=== PATIENT | female | born 1995 | race Two or more races ===

== ENCOUNTER 2024-11-01 17:45 | Emergency (ER) | payer MEDICAID ==
[~2024-11-01] VITALS: Ht 172.7 cm; Wt 107.8 kg
--- NOTE | 2024-11-01 18:41 | ED.PDOC ---
Back pain HPI HPI Comments HPI: 29y F who presents to the ED for chief complaint of extremity pain. Patient had a MRI of the back in June of this year that shows foraminal stenosis. - pt PCP placed pt on pain medications for the past 1 month and pt is pending pain management appt which pt states is upcoming Past Medical history: foramen stenosis Past Surgical history: denies Medications: denies Allergies: denies Social History: endorses ETOH, denies tobacco use, endorses drug use(MJ) HPI: Poor Historian. Denies . 29-year-old female with a history of chronic low back pain pending to be seen by pain management. She is presenting today with the acute on chronic exacerbation of her low back pain. She points to her lumbosacral region worse on the right side radiating to the right upper buttock and into the right inguinal area. Pain is worse with movement of her right lower extremity. Denies cauda equina like symptoms. Denies any focal neurological deficits. Denies any recent fall or trauma or injury. Exacerbation of her symptoms started four days ago. REVIEW OF SYSTEMS: CONSTITUTIONAL: Denies acute: fever, diaphoresis, chills, generalized weakness. HEAD: Denies acute: headache, photophobia Eyes: Denies acute: Double vision, vision loss, eye pain, eye discharge. EARS: Denies acute: tinnitus, hearing loss, ear discharge, ear pain, THROAT: Denies acute: sore throat, swelling, difficulty swallowing , pain with swallowing, change in voice. NECK: Denies acute: neck pain, neck swelling, stiff neck. HEART: Denies acute : chest pain, palpitations, LUNGS: Denies acute: SOB, wheezing, cough, hemoptysis ABDOMEN: Denies acute: abdominal pain, Nausea, Vomiting, diarrhea, melena , hematemesis, hematochezia SKIN: Denies acute: rash, redness, lesions, itchiness. EXTREMITIES: Denies acute: calf pain, numbness, tingling, weakness, denies pain in extremity. Neuro: Denies acute: focal neurological deficit, motor or sensory focal neurological deficit, tremors, seizure like activity, confusion, dizziness, change in mental status, loss of bowel or bladder function, cauda equina like symptoms. : Denies acute: dysuria, hematuria, flank pain, increase in urinary frequency. PSYCH: Denies acute: hallucination, suicidal ideation, homicidal ideation. FEMALE: Denies acute: abnormal vaginal bleeding, foul odor, unusual discharge. PHYSICAL EXAM: General: ----mild----acute distress, awake and alert. Head: normocephalic, atraumatic. Neck: supple, trachea is midline, no swelling. Throat: Normal phonation. Eyes:, no erythema, no purulent discharge, no proptosis, no icterus. Heart: regular rate, regular rhythm, no significant murmur appreciated. Lungs: no apparent respiratory distress, Able to speak in full sentences. No wheezing, no rhonchi, no crackles. No stridors Clear to auscultation bilaterally. Abdomen: non tender to palpation, non distended, soft, no guarding, no rebound, + bowel sounds. Obese Palpation of the area of pain, lumbosacral region in a belt distribution worse on the right side. Pain is radiating to the right upper buttock area. No cauda equina like symptoms. Denies saddle anesthesia or any focal neurological weakness or deficit. Neuro: Awake, Alert, oriented to name, self, situation, follows commands GCS=15. Speech is normal. Skin: no petechia, no purpura, no cyanosis, non-pale, not jaundice. Lower extremities: --no - Pitting edema no deformity, no focal swelling, no calf TTP. Makes eye contact. moves all four extremities. Face: no apparent facial droop. No CVA tenderness to percussion bilaterally. Ambulating in the ED independently. Pedal pulses are palpable. ED COURSE: Chief Complaint: Lower Extremity Time Seen by MD: 19:19 Primary Care Provider: JUANIS Delgado Notes: Medications, Allergies Allergies: Coded Allergies: NO KNOWN ALLERGIES (Unverified , 11/01/24) Information Source: Patient Mode of Arrival: Ambulatory Was a procedure done? Was a procedure done?: No Back Pain Differential Dx Differential Diagnosis: Other (DDX included but not limited to Cauda Equina syndrome, lumbar radiculopathy, arthritis, disk herniation, sciatica, muscle strain, epidural abscess, transverse myelitis. Cord compression, spinal foraminal stenosis, spinal fractures, spondylosis, central canal stenosis, trauma, muscle sprain/strain, aneurysm/dissection, kidney stones, shingles, arthritis, [place], neoplasm.) X-Ray, Labs, Meds, VS Vital Signs Date Time Temp Pulse Resp B/P (MAP) Pulse Ox O2 Delivery O2 Flow Rate FiO2 11/01/24 21:08 98.0 58 20 114/65 (81) 97 98.0 11/01/24 18:59 62 18 103/63 (76) 100 11/01/24 18:54 Room Air* 0 21 11/01/24 18:00 98.1 71 16 112/82 (92) 99 98.1 Lab Test 11/01/24 21:30 Range/Units Urine Color Light-yellow Yellow Urine Clarity Clear Clear Urine pH 6.0 5.0-9.0 Urine Specific [place] 1.017 1.001-1.035 Urine Protein Negative Negative Urine Ketones Negative Negative Urine Blood Negative Negative /uL Urine Nitrite Negative Negative Urine Bilirubin Negative Negative Urine Urobilinogen Normal Negative mg/dL Urine Leukocyte Esterase Negative Negative /uL Urine RBC None seen 0 - 4 /hpf Urine Microscopic WBC < 1 0-5 /HPF Urine Squamous Epithelial Cells Few <5 /hpf Urine Bacteria None seen None Seen /hpf Urine Glucose Normal Normal mg/dL Time of 1ST Reevaluation: 21:19 (As of now, I still do not have urinalysis on this patient.) Reevaluation 1ST: Improved Patient Education/Counseling: Diagnosis, Treatment Family Education/Counseling: No Family Present Comments Patient presented with the above HPI.---acute and chronic low back pain---workup was initiated. patient was found with the above mentioned diagnosis. the following medications were ordered: please refer to order lists of meds and tests obtained by myself Dr. Rodgers. Patient ED course and VS have been stabilized. Patient has been reassessed in the ED and remained in a stable condition. Pertinent incidental findings were discussed with the patient and/or family. Patient/family voices understanding and is agreeable with plan. Patient has been observed in the ED adequate length of time to insure improvement/stability. Escalation of care considered: Consideration of escalation to observation or admission No cauda equina like symptoms. No focal neurological deficits. Patient is supposed to follow up with pain management and just had an MRI recently. Patient was DISCHARGED home in a stable condition. All the reports of any imaging studies that were ordered by myself were reviewed by myself. Departure 1 Departure Time of Disposition: 21:12 Impression: Primary Impression: Low back pain Disposition: HOME / SELF CARE / HOMELESS Condition: Stable Additional Instructions: Additional instructions: You MUST follow-up with your primary care/family doctor in 1 to 2 days. If you are unable to see your primary care/family doctor, please return to our emergency room for re-assessment and re-evaluation in 1 to 2 days. Return to the emergency room here in our facility or to the nearest ER [facility] if your symptoms change or worsen. CONSULTATIONS: you MUST Follow-up for consultation as soon as possible with: -orthopedic doctor and pain management in 1-2 days. Please call for appointment. You MUST call the consultants office yourself to make an appointment. You may need to arrange that through your insurance and/or your primary/family doctor. If you are unable to see the senior wind energy consultant in 1 to 2 days, you must return to our emergency room (or any other ER of your choice) for re-assessment and re- evaluation. Adequate fluid hydration. No heavy lifting. Rest. Discharged With: Self Critical Care Note Critical Care Time?: No I personally scribed for YUNIOR RODGERS DO ([email or web address]) on 11/01/24 at 18:41. Electronically submitted by Sandor Dixon ([email or web address]). I personally scribed for YUNIOR RODGERS DO ([email or web address]) on 11/01/24 at 19:19. Electronically submitted by Sandor SANCHEZ). YUNIOR RODGERS DO Nov 01, 2024 18:41
[2024-11-01] MEDS: HYDROcodone-ACET 5/325MG TAB PO ONE (19:11)
[2024-11-01] MEDS: KETOROLAC TROMETH 30 MG/ML 1ML VIAL IV ONE (19:11)
[2024-11-01] MEDS: DexAMETHasone SOD PHOS 10MG/1ML VIAL INJ IV ONE (19:12)
[2024-11-01 21:08] VITALS: BP 114/65; PULSE 58; RESP 20; TEMP 98; O2SAT 97
[2024-11-01 21:38] LABS: Urine Bacteria None Seen /hpf (None Seen)
[2024-11-01 21:43] LABS: Urine Blood Negative /uL (Negative); Urine Clarity Clear (Clear); Urine Color Light-Yellow (Yellow); Urine Protein, UAD Negative (Negative); Urine Specific Gravity 1.017 (1.001-1.035); Urine Squamous Epithelial Cell FEW /hpf (<5); Urine Urobilinogen Normal (Negative); Urine WBC < 1 /HPF (0-5)
== END 2024-11-01 22:32 | disposition home or self-care (01) ==
LOC: ER 17:45
DX: G89.29 Other chronic pain (principal); M54.50 Low back pain, unspecified; F12.90 Cannabis use, unspecified, uncomplicated; F10.90 Alcohol use, unspecified, uncomplicated; Y90.9 Presence of alcohol in blood, level not specified
CPT/HCPCS: 81001; 96374; 96375; 99284; J1100; J1885

== ENCOUNTER 2024-11-04 14:08 | Emergency (ER) | payer MEDICAID ==
--- NOTE | 2024-11-04 14:26 | ED.PDOC ---
History of Present Illness HPI Comments 29-year-old female presents with a chief complaint of wellness check. Patient was recently seen here and was told that she has spinal stenosis and was told to follow up in 1-2 days. Patient reports that she is still having pain to her right lower back. No other symptoms or modifying factors present at this time. she is being followed by pain management. she has no weakness, no numbness, no bowel or bladder issues Time Seen by MD: 14:13 Primary Care Provider: JUANIS Delgado Notes: Medications, Allergies Allergies: Coded Allergies: NO KNOWN ALLERGIES (Unverified , 11/01/24) Information Source: Patient Mode of Arrival: Ambulatory Severity: Moderate Timing: Days Duration: Since onset Prehospital treatment: None Past Medical History Past Medical History (Other): spoinal stenosis Surgical History: Denies all surgeries [employer] History: Denies all [employer] Hx Family History Family History: Reviewed,noncontributory to illness Social History Smoker: Non-Smoker Alcohol: Denies ETOH Use Drugs: Denies Drug Use Lives In: Home Constitutional: denies: chills, diaphoresis, fatigue, fever, malaise, sweats, weakness, others EENTM: denies: blurred vision, double vision, ear bleeding, ear discharge, ear drainage, ear pain, ear ringing, eye pain, eye redness, hearing loss, mouth pain, mouth swelling, nasal discharge, nose bleeding, nose congestion, nose pain, photophobia, tearing, throat pain, throat swelling, voice changes, others Respiratory: denies: cough, hemoptysis, orthopnea, SOB at rest, shortness of breath, SOB with excertion, stridor, wheezing, others Cardiovascular: denies: chest pain, dizzy spells, diaphoresis, Dyspnea on exertion, edema, irregular heart beat, left arm pain, lightheadedness, palpitations, PND, syncope, others Gastrointestinal: denies: abdomen distended, abdominal pain, blood streaked bowels, constipated, diarrhea, dysphagia, difficulty swallowing, hematemesis, melena, nausea, poor appetite, poor fluid intake, rectal bleeding, rectal pain, vomiting, others Genitourinary: denies: abnormal vagina bleeding, burning, dyspareunia, dysuria, flank pain, frequency, hematuria, incontinence, pain, , vagina discharge, urgency, others Neurological: denies: dizziness, fainting, headache, left sided numbness, left sided weakness, numbness, paresthesia, pre-existing deficit, right sided numbness, right sided weakness, seizure, speech problems, tingling, tremors, weakness, others Musculoskeletal: reports: back pain, muscle pain; denies: gout, joint pain, joint swelling, muscle stiffness, neck pain, others Integumetry: denies: bruises, change in color, change in hair/nails, dryness, laceration, lesions, lumps, rash, wounds, others Allergic/Immunocompromised: denies: Difficulty Healing, Frequent Infections, Hives, Itching, others Hematologic/Lymphatic: denies: anemia, blood clots, easy bleeding, easy bruising, swollen glands, others Endocrine: denies: excessive hunger, excessive sweating, excessive thirst, excessive urination, flushing, intolerance to cold, intolerance to heat, unexplained weight gain, unexplained weight loss, others Psychiatric: denies: anxiety, bipolar disorder, depression, hopeless, panic disorder, schizophrenia, sleepless, suicidal, others All Other Systems: Reviewed and Negative Physical Exam General Appearance: No Apparent Distress, Normal HEENT: Normal ENT Inspection, Pharynx Normal, TMs Normal Neck: Full Range of Motion, Non-Tender, Normal, Normal Inspection Respiratory: Chest Non-Tender, Lungs Clear, No Accessory Muscle Use, No Respir atory Distress, Normal Breath Sounds Cardiovascular: No Edema, No JVD, No Murmur, No Gallop, Normal Peripheral Pulses, Regular Rate/Rhythm Breast Exam: Deferred Gastrointestinal: No Organomegaly, Non Tender, No Pulsatile Mass, Normal Bowel Sounds, Soft Genitalia: Deferred Pelvic: Deferred Rectal: Deferred Extremities: No calf tenderness, Normal capillary refill, Normal inspection, Normal range of motion, Non-tender, No pedal edema Musculoskeletal : Apperance: Normal Neurologic: Alert, cutter operator II-XII nml as Tested, No Motor Deficits, Normal Affect, Normal Mood, No Sensory Deficits Cerebellar Function: Normal Reflexes: Normal Skin: Dry, Normal Color, Warm Lymphatic: No Adenopathy Was a procedure done? Was a procedure done?: No Differential Dx Considerations may include: sciatica, chronic back pain, DDD Time of 1ST Reevaluation: 14:43 Reevaluation 1ST: Unchanged Patient Education/Counseling: Diagnosis, Treatment, Prognosis, Need For Follow Up Family Education/Counseling: No Family Present Comments pt has no new symptoms, she just came to be seen because she was told to come back for recheck Departure 1 Departure Time of Disposition: 14:30 Impression: Primary Impression: Chronic back pain Qualified Codes: M54.50 - Low back pain, unspecified; G89.29 - Other chronic pain Disposition: 01 HOME / SELF CARE / HOMELESS Condition: Good Additional Instructions: continue to follow up with your doctor . feel free to return for any new symptom or concerns Discharged With: Self Critical Care Note Critical Care Time?: No Stability Stability form required: No Heart Score Heart Score: Heart Score Response (Comments) Value History N/A 0 EKG N/A 0 Age N/A 0 Risk Factors N/A 0 Troponin N/A 0 Total 0 I personally scribed for FARIHA JONES MD ([email or web address]) on 11/04/24 at 14:26. Electronically submitted by Gian Hedrick ([email or web address]). FARIHA JONES MD Nov 04, 2024 14:26
== END 2024-11-04 15:46 | disposition home or self-care (01) ==
LOC: ER 14:10
DX: G89.29 Other chronic pain (principal); M54.50 Low back pain, unspecified; M48.00 Spinal stenosis, site unspecified